=== PATIENT | female | born 1990 | race African-American/Black ===

== ENCOUNTER 2019-04-23 06:20 | Day surgery (SDC) | payer MEDICAID ==
[2019-04-22 15:11] LABS: ADD MAN DIFF? NO
[2019-04-22 15:14] LABS: WHITE BLOOD COUNT 6.6 10^3/ul (4.8-10.8)
[2019-04-22 15:14] LABS: BASOPHIL # 0.1 10^3/ul (0.0-0.1); BASOPHILS % 0.9 % (0.0-2.0); EOSINOPHILS # 0.2 10^3/ul (0.0-0.5); HEMOGLOBIN 11.9 g/dl (12.0-16.0); LYMPHOCYTES # 2.3 10^3/ul (0.8-2.9); LYMPHOCYTES % 34.3 % (15.0-51.0); MEAN CORPUSCULAR HEMOGLOBIN 30.1 pg (29.0-33.0); MEAN CORPUSCULAR HGB CONC 32.2 g/dl (32.0-37.0); MEAN CORPUSCULAR VOLUME 93.7 fl (82.0-101.0); MEAN PLATELET VOLUME 9.1 fl (7.4-10.4); MONOCYTE # 0.5 10^3/ul (0.3-0.9); MONOCYTES % 8.1 % (0.0-11.0); NEUTROPHIL # 3.5 10^3/ul (1.6-7.5); NEUTROPHILS % 53.4 % (39.0-77.0); PLATELET COUNT 234 10^3/UL (140-415); RED BLOOD COUNT 3.95 10^6/ul (4.20-5.40); RED CELL DISTRIBUTION WIDTH 14.2 % (11.5-14.5)
[2019-04-22 15:36] LABS: INR 0.96; PROTIME 12.9 Sec (11.9-14.9)
[2019-04-22 15:37] LABS: PARTIAL THROMBOPLASTIN TIME 31.5 Sec (23.0-35.0)
[2019-04-23] MEDS: LACTATED RINGER'S 1,000 ML IV (08:15)
[2019-04-23] MEDS ORDERED: HYDROmorphONE 1 MG/5 ML IV SYRINGE IV ×3 (09:00)
[2019-04-23] MEDS ORDERED: ONDANSETRON 4 MG INJ IV (09:00)
[2019-04-23] MEDS ORDERED: OXYCODONE/ACETAMINOPHEN (5/325) TAB PO (09:00)
[2019-04-23] MEDS ORDERED: MIDAZOLAM 1 MG/ML 2 ML INJ IV (09:00)
[2019-04-23] MEDS ORDERED: FENTAnyl 50 MCG/ML VIAL IV ×2 (09:00)
[2019-04-23] MEDS ORDERED: DIPHENHYDRAMINE 50 MG INJ IV (09:00)
[2019-04-23] MEDS ORDERED: METOCLOPRAMIDE 10 MG INJ IV (09:00)
[2019-04-23] MEDS ORDERED: PROPOFOL 20 ML (09:18)
[2019-04-23] MEDS ORDERED: ONDANSETRON 4 MG INJ (09:18)
[2019-04-23] MEDS ORDERED: METOCLOPRAMIDE 10 MG INJ (09:18)
[2019-04-23] MEDS ORDERED: LIDOCAINE 2% (SDV) 5 ML INJ (09:18)
[2019-04-23] MEDS ORDERED: OXYTOCIN 10 UNIT INJ (09:34)
[2019-04-23] MEDS ORDERED: CEFAZOLIN 1 GM INJ (09:35)
[2019-04-23] MEDS: MEPERIDINE 25 MG INJ IV (10:16)
[2019-04-23] MEDS ORDERED: ACETAMINOPHEN 325 MG TAB PO (10:30)
[2019-04-23] MEDS: FENTAnyl 50 MCG/ML VIAL IV ×3 (10:35→11:03)
[2019-04-23] MEDS: OXYCODONE/ACETAMINOPHEN (5/325) TAB PO (11:40)
== END 2019-04-23 12:04 | disposition home or self-care (01) ==
LOC: SDS 06:20
DX: O03.4 Incomplete spontaneous abortion without complication (principal)
CPT/HCPCS: 59812; 84703; 85025; 85610; 85730; 86900; 86901; 88305